=== PATIENT | male | born 1990 | race Caucasian/White ===

== ENCOUNTER 2017-03-22 00:20 | Emergency (ER) | payer BC ==
[2017-03-22 00:28] VITALS: BP 136/71; PULSE 70; RESP 16; TEMP 99.1
[2017-03-22] MEDS ORDERED: PROPARACAINE 0.5% OPHTH DROPS 15 ML BTL BOTH EYES STA (00:35)
[2017-03-22] MEDS ORDERED: TOBRAMYCIN 0.3% OPHTH DROPS 5 ML BTL BOTH EYES STA (00:59)
--- NOTE | 2017-03-22 01:03 | ED ---
ENT HPI - General Chief complaint: ENT Stated complaint: Eye problem-no injury Time Seen by Provider: 03/22/17 00:34 Source: patient, RN notes reviewed, old records reviewed Mode of arrival: ambulatory Limitations: no limitations - History of Present Illness Initial comments: 27-year-old male presents emergency Department chief complaint of bilateral eye pain and irritation. Patient reports that this occurred approximately 1-2 hours after he was working today. 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 Patient reports he usually wears safety glasses. However he thinks that something may have fluid behind his safety glasses and causes eye irritation. Patient states that he does not wear contacts. He reports that his vision is somewhat blurry due to his eyes watering and being painful. Denies any pain with increase with bright lights. Denies any pain with extraocular eye movements. Patient reports that his eye seemed to be irritated and he feels like there is something stuck in his eye.Patient denies any recent fever, chills, shortness of breath, chest pain, back pain, abdominal pain, nausea vomiting, numbness or tingling, dysuria or hematuria, constipation or diarrhea, headaches or visual changes, or any other current symptoms - Related Data Previous Rx's Medication Instructions Recorded Tobramycin 0.3% Ophth Soln [Tobrex 1 drop BOTH EYES Q4H #1 bottle 03/22/17 0.3% Ophth Soln] Allergies Allergy/AdvReac Type Severity Reaction Status Date / Time Penicillins Allergy Unknown Verified 03/22/17 00:27 Childhood Review of Systems ROS Statement: Those systems with pertinent positive or pertinent negative responses have been documented in the HPI. ROS Other: All systems not noted in ROS Statement are negative. Past Medical History Past Medical History: No Reported History History of Any Multi-Drug Resistant Organisms: None Reported Additional Past Surgical History / Comment(s): ingrown toenail. Past Psychological History: No Psychological Hx Reported Smoking Status: Former smoker Past Alcohol Use History: None Reported Past Drug Use History: None Reported General Exam - General Exam Comments Initial Comments: Well-appearing 27-year-old male. No acute distress. Limitations: no limitations General appearance: alert, in no apparent distress Head exam: Present: atraumatic, normocephalic, normal inspection Eye exam: Present: PERRL, EOMI, conjunctival injection (Bilateral conjunctival injection.), other (Or scene eye exam was performed and there is evidence of corneal abrasion at the 6 o'clock position on the left eye. There is also evidence of a corneal abrasion at the 4 o'clock position on the right eye.). Absent: normal appearance, scleral icterus, periorbital swelling ENT exam: Present: normal exam, mucous membranes moist Neck exam: Present: normal inspection. Absent: tenderness, meningismus, lymphadenopathy Respiratory exam: Present: normal lung sounds bilaterally. Absent: respiratory distress, wheezes, rales, rhonchi, stridor Cardiovascular Exam: Present: regular rate, normal rhythm, normal heart sounds. Absent: systolic murmur, diastolic murmur, rubs, gallop, clicks GI/Abdominal exam: Present: soft, normal bowel sounds. Absent: distended, tenderness, guarding, rebound, rigid Back exam: Present: normal inspection Neurological exam: Present: alert, oriented X3, CN II-XII intact Psychiatric exam: Present: normal affect, normal mood Skin exam: Present: warm, dry, intact, normal color. Absent: rash Course Vital Signs 03/22/17 00:23 Temperature 99.1 F Pulse Rate 70 Respiratory 16 Rate Blood Pressure 136/71 O2 Sat by Pulse 100 Oximetry Medical Decision Making - Medical Decision Making 27-year-old male presents emergency Department chief complaint of bilateral eye pain thinks that there is something in his eye after work. Patient works with multiple materials and thinks that [place] for some kind of a material flewbehind his safety glasses into his eye. Fluorescein eye exam was performed. There is evidence of bilateral corneal abrasions over the 5:00 and 6:00 positions of the eyes. Patient has no pain with extraocular eye movements. Does not wear contacts. At this time I'll place the patient on tobramycin drops. Discussed that if it does not get any better the next 1-2 days he should follow-up with ophthalmology. Given a referral. Patient understands treatment plan will comply. Return parameters were discussed. Disposition Clinical Impression: Bilateral corneal abrasions Disposition: HOME SELF-CARE Condition: Good Instructions: Corneal Abrasion (ED) Additional Instructions: Patient advised to apply the antibiotic ointment every 4 hours. Follow-up with ophthalmology if symptoms continue to persist over the next 1-2 days. Into to apply ice or cool compresses over the ear eyes. Return to the emergency department if any alarming signs or symptoms occur. Prescriptions: Tobramycin 0.3% Ophth Soln [Tobrex 0.3% Ophth Soln] 1 drop BOTH EYES Q4H #1 bottle Referrals: Steffi Hawthorne DO [Primary Care Provider] - 1-2 days Honorio Hanson MD [STAFF PHYSICIAN] - 1-2 days Time of Disposition: 01:02
== END 2017-03-22 01:15 | disposition home or self-care (01) ==
LOC: EC 00:20
DX: S05.02XA Injury of conjunctiva and corneal abrasion without foreign body, left eye, initial encounter (principal); S05.01XA Injury of conjunctiva and corneal abrasion without foreign body, right eye, initial encounter; Z88.0 Allergy status to penicillin; Z87.891 Personal history of nicotine dependence
CPT/HCPCS: 99283